=== PATIENT | male | born 1955 | race Caucasian/White ===

== ENCOUNTER 2021-02-10 09:28 | Observation (INO) | payer OTHER ==
[2021-02-10] VITALS (11 sets, daily range): BP systolic 139–164; BP diastolic 88–106
[~2021-02-10] VITALS: Ht 180.3 cm; Wt 95.3 kg
[2021-02-10 10:25] LABS: HEMATOCRIT 52.4 % (42.0-52.0); HEMOGLOBIN 17.1 gm/dL (14.0-18.0); MCH 29.1 pg (26.0-34.0); MCHC 32.6 g/dL (28.0-37.0); MCV 89.4 fL (80.0-100.0); RBC 5.86 mil/uL (4.50-6.00); RDW 13.9 % (10.5-14.5); WBC 8.9 thou/uL (4.0-11.0)
[2021-02-10 10:36] LABS: CALCIUM 9.4 mg/dL (8.5-10.1); POTASSIUM 3.7 mmol/L (3.5-5.1)
[2021-02-10] MEDS ORDERED: LIVALO4 MG PO (14:10)
[2021-02-10] MEDS ORDERED: ASA81BEC PO (14:11)
[2021-02-10] MEDS ORDERED: TOPROL XL25 MG PO (14:11)
[2021-02-10] MEDS ORDERED: MOBIC7.5 MG PO (14:11)
[2021-02-10] MEDS ORDERED: FLONASE 0.05%50 MCG NASAL (14:12)
--- NOTE | 2021-02-10 17:00 | NUR ---
ADMISSION NOTE: PPT ADMITTED IN ROOM 216, ALERT AND ORIENTED X4, ON ROOM AIR. DENIES ANY PAIN ROS. RIGHT GROIN POST CATH, SOFT, CLEAN, DRY AND INTACT, NO NO HEMATOMA. BEDREST UNTIL 1914. 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 SKIN INTACT. ASSESSMENT AND ADMISSION COMPLETED. SCD'S ON. ALL CONSENTS SIGNED BY PT. DENIES ANY NEEDS ROS
--- NOTE | 2021-02-10 18:23 | CATHLAB ---
[facility] [place] [address] INVASIVE PROCEDURE REPORT Name: TRAVIS HUNTER Room #: 216-P [facility] M.JarekTomasa#: [id number] Admission: 02/10/21 Attend Phys: Nik Meng MD, Discharge: Date of : 57 Report #: [id number] THIS REPORT FOR: cc: Lon Kennedy MD, Russell Richard MD Mancuso, Gerald M. MD [facility] ~ APPROVED REPORT Study performed: 02/10/2021 13:27:02 Patient Details Patient Status: Out-Patient Room #: The patient is a 66 year-old male Event Personnel Nik Meng Client Analyst, Shaheen Chaidez RN RN, Edwin Solo RTR Edison Anderson Roberta Monitor Procedures Performed Art Access - R femoral artery* Left Heart Cath w/or w/o Coronaries 4539370 [facility] ENIO Place w/wo Plasty Single CIRC 114138 15447 Initial Mod Sed Same Phys/QHP Gr5y 190320 57017 Mod Sed Same Phys/QHP Ea 694950 Aortogram Abdominal Peripheral Angio 464636 Hemostasis w/ Mynx Indication Chest pain Procedure Narrative The Right Groin^ was infiltrated with 1% Lidocaine subcutaneous anesthesia. A PINNACLE 6FR Sheath #[id number] sheath was inserted into the RFA^. Coronary angiography was performed using coronary diagnostic catheters. The right coronary system was accessed and visualized with a JR4 catheter. The left coronary system was accessed and visualized with a JL4 catheter. The left ventricle was accessed and visualized with a STR PIG catheter. Left ventriculogram was performed in 30 degree projection. The patient tolerated the procedure well and there were no complications associated with the procedure. There was no hematoma. Intraoperative Conscious Sedation Sedation start time: 1420 Case end Time: 151 Fentanyl 100 mcg Versed 1 mg [facility] [employer] [place] [address] INVASIVE PROCEDURE REPORT Name: TRAVIS HUNTER Room #: 216-P [facility]..#: [id number] Admission: 02/10/21 Attend Phys: Nik Meng, Discharge: Date of : 57 Report #: [id number] Fluoro Time: 9.70 minutes Dose: DAP 71331.20 cGycm2 2592 mGy Contrast Type and Amount: Omnipaque 210 ml Hemodynamics The aortic pressure is 143/69 mmHg with a mean of mmHg. The left ventricular pressure is 152/3 mmHg with a mean of mmHg. The left ventricular end diastolic pressure is 23 mmHg. PCI Technique Lesion Percutaneous coronary intervention was performed on the distal circumflex artery segment. A LAUNCHER 6FR EBU 3.75 #[id number] Guide Catheter was used to engage the CIRC ostium. A Luge Wire .014 x 182CM #[id number] Interventional Guidewire was used to cross the lesion. BALLOON DILATION A Balloon catheter Sprinter OTW 2.5 x 15 #[id number] was inserted and inflated up to 10.00atm for 23seconds. PCIRC STENT DEPLOYMENT A stent RESOLUTE MARY OTW 2.75 X 18 #[id number] was inserted and inflated up to 14.00atm for 26seconds. Additional Inflation: 16.00atm for 23seconds. Second stent placed distal Circ 2.5x12mm deployed at 12 merced for 25sec/in and a second inflation at 14atm at 18sec/min. Conclusion #1 Normal left ventricular size and systolic function EF 55 to 60%. #2 abdominal aortogram intact with mild irregularity no aneurysm formation. Mild ectasia. #3 successful PTCA stent of a high-grade proximal codominant to dominant circumflex system. Placement of a 2.75 x 18 resolute stent LYLE grade III flow 0% residual into a distal dominant OM system. #4 successful PTCA stent of a mid circumflex 90% lesion with a 2.5 x 12 resolute Mary supplying the distal OM system codominant. LYLE grade III flow #5 left main is large and free of disease giving rise to LAD and circumflex. #6 LAD is an eccentric proximal lesion of 50 to 60% giving rise to a mildly diseased vessel to the apex. No occlusive disease for intervention. Moderate disease and smaller diagonal system. 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 It is a codominant system. Recommendations and plan: Continue aggressive risk factor modification. Dual antiplatelet therapy has been initiated. He is hemodynamically stable resolution of chest pain and EKG. Transfer to CCU to follow post coronary stent protocol. <ELECTRONICALLY SIGNED> By: Nik Meng MD, FACC 02/10/211822 22 22 Nik Meng MD, FACC /INF
[2021-02-11 03:30] LABS: HEMATOCRIT 47.3 % (42.0-52.0); HEMOGLOBIN 15.6 gm/dL (14.0-18.0); MCH 29.3 pg (26.0-34.0); MCHC 33.1 g/dL (28.0-37.0); MCV 88.8 fL (80.0-100.0); RBC 5.33 mil/uL (4.50-6.00); RDW 13.6 % (10.5-14.5); WBC 7.7 thou/uL (4.0-11.0)
--- NOTE | 2021-02-11 03:35 | NUR ---
PT IS ALERT AND OREINTED X4. LUNGS ARE CLEAR ON ROOM AIR. PT IS SLEEPING . RIGHT GROIN SITE IS CLEAN DRY AND INTACT NO HEMATOMA NOTED. DENIES ANY PAIN ISSUES. ABDOMEN IS ROUND BOWEL SOUNDS ACTIVE X4. CALL LIGHT WITHIN REACH IF NEEDS ASISSTANCE PER NURSING.
[2021-02-11 04:02] LABS: ALBUMIN 3.5 g/dL (3.4-5.0); CALCIUM 8.8 mg/dL (8.5-10.1); POTASSIUM 4.1 mmol/L (3.5-5.1); TOTAL BILIRUBIN 0.7 mg/dL (0.2-1.0); TOTAL PROTEIN 6.6 g/dL (6.4-8.2)
[2021-02-11 04:08] VITALS: BP 130/79
[2021-02-11 07:55] VITALS: BP 125/101
[2021-02-11] MEDS ORDERED: EFFIENT10 MG PO (08:03)
[2021-02-11] MEDS ORDERED: CRESTOR10 MG PO (08:03)
[2021-02-11] MEDS ORDERED: BENICAR20 MG PO (08:03)
--- NOTE | 2021-02-11 08:53 | EKG ---
[address] [address] ELECTROCARDIOGRAM REPORT Name: TRAVIS HUNTER Room #: 216-[facility] M.R.#: [id number] Admission: 02/10/21 Attend Phys: Nik Meng MD, Discharge: Date of : 57 Report #: [id number] [facility] Test Date: 2021-02-11 Test Time: 06:39:26 Pat Name: TRAVIS HUNTER Department: Room: [facility] Gender: M Administration Assistant: : 1955 Requested By: Nik Meng Order Number: [id number] MD: Gianfranco Light Measurements Intervals [place] Rate: 64 P: 45 [place]: 166 QRS: 48 QRSD: 93 T: 42 QT: 401 QTc: 414 Interpretive Statements Sinus rhythm Normal tracing No previous ECG available for comparison Electronically Signed On 02-11-2021 8:53:19 ANIMATION PRODUCER by Gianfranco Light [email or web address] <ELECTRONICALLY SIGNED> By: Gianfranco Light MD, [facility] 02/11/21 0853 0639 0639 Gianfranco Light MD, FACC /EPI
[2021-02-11 11:35] VITALS: BP 146/93
[2021-02-11 12:22] VITALS: BP 146/93
--- NOTE | 2021-02-11 12:57 | NUR ---
PATIENT DISCHARGED HOME, EDUCATION DONE AT BEDSIDE WITH PATIENT AND . NO QUESTIONS OR CONCERNS AT TIME OF EDUCATION. IV AND TELE REMOVED. TAKEN OUT BY STAFF IN WHEELCHAIR TO FAMILY WAITING IN PRIVATE VEHICLE.
== END 2021-02-11 14:52 | disposition home or self-care (01) ==
LOC: CATH 09:28 → 2N 15:47 → CATH 15:48 → 2N 02-11 14:52
PROVIDERS: ADMIT Internal Medicine Cardiovascular Disease; ATTEND Internal Medicine Cardiovascular Disease
DX: I25.110 Atherosclerotic heart disease of native coronary artery with unstable angina pectoris (principal); I10 Essential (primary) hypertension; E78.00 Pure hypercholesterolemia, unspecified; E78.5 Hyperlipidemia, unspecified; R94.39 Abnormal result of other cardiovascular function study; Z88.1 Allergy status to other antibiotic agents; Z88.8 Allergy status to other drugs, medicaments and biological substances
CPT/HCPCS: 10797

== ENCOUNTER → 2021-02-10 | Outpatient (CLI) | payer OTHER ==
[~2021-02-10] MED LIST: ASA81BEC PO; BENICAR20 MG PO; CRESTOR10 MG PO; EFFIENT10 MG PO; FLONASE 0.05%50 MCG NASAL; LIVALO4 MG PO; MOBIC7.5 MG PO; TOPROL XL25 MG PO
== END ==
LOC: SJCVCIMAG 07:07
PROVIDERS: ATTEND Internal Medicine Cardiovascular Disease
DX: I25.9 Chronic ischemic heart disease, unspecified (principal); R94.39 Abnormal result of other cardiovascular function study; R07.9 Chest pain, unspecified; E78.5 Hyperlipidemia, unspecified; I10 Essential (primary) hypertension; Z72.0 Tobacco use; Z72.89 Other problems related to lifestyle; Z79.82 Long term (current) use of aspirin; Z79.899 Other long term (current) drug therapy; Z82.49 Family history of ischemic heart disease and other diseases of the circulatory system; Z88.0 Allergy status to penicillin; Z88.8 Allergy status to other drugs, medicaments and biological substances

== ENCOUNTER → 2021-03-16 | Outpatient (CLI) | payer OTHER, MEDICARE | LOC: SJCVC 14:37 | PROVIDERS: ATTEND Internal Medicine Cardiovascular Disease | DX: I25.10 Atherosclerotic heart disease of native coronary artery without angina pectoris (principal); I10 Essential (primary) hypertension; E78.01 Familial hypercholesterolemia; E78.5 Hyperlipidemia, unspecified; Z72.89 Other problems related to lifestyle; Z79.82 Long term (current) use of aspirin; Z79.899 Other long term (current) drug therapy; Z88.0 Allergy status to penicillin; Z88.8 Allergy status to other drugs, medicaments and biological substances; Z82.49 Family history of ischemic heart disease and other diseases of the circulatory system ==